=== PATIENT | female | born 1960 | race Caucasian/White ===

== ENCOUNTER 2019-04-16 08:10 | Outpatient (CLI) | payer BC ==
--- NOTE | 2019-04-16 08:52 | RAD ---
XR Ankle Lt 3 View STANDARD INDICATION: Ankle injury. COMPARISON: None. FINDINGS: Bones: Intact. Ankle mortise: Symmetric. Talar Dome: Intact. Subtalar joint: Normal. Visualized hindfoot: There is prominent enthesopathic change off the calcaneus. Periarticular soft tissues: Normal. IMPRESSION: 1. No acute fracture or subluxation demonstrated.
== END 2019-04-16 08:11 | disposition home or self-care (01) ==
LOC: MADRAD 08:10
PROVIDERS: ATTEND Specialist
DX: M79.672 Pain in left foot (principal)